=== PATIENT | female | born 1990 | race Caucasian/White ===

== ENCOUNTER 2021-01-25 07:42 | Inpatient (IN) ==
[2021-01-25] MEDS ORDERED: OXYTOCIN 30 UNITS/500 ML BAG IV PRN ×2 (07:45)
--- NOTE | 2021-01-25 08:12 | History & Physical Report ---
Date of Service January 25, 2021 Assessment & Plan (1) Gestational diabetes mellitus (GDM) affecting , antepartum: (2) with 41 completed weeks gestation: Plan: plan pitocin induction, screen covid, gbs negative. arom as needed, epidural on demand. Fetus category one. Check sugars with goal of 70-120. Anticipate . Admission and Anticipated Discharge Date Admission Date: January 25, 2021 History of Present Illness Chief Complaint: induction Primary Care Provider: Casey De Dios Fabián Patient is a 30yowf with iup at41 0/7 weeks who presents for induction. Had balloon placed last night and fell out at 1am. Had some spotting and contractions for about 2 hours after that. Notes no lof, +fm. complicated by diet controlled gdm. Last AC 60% on 12/27. Complex cyst on left ovary noted at [facility]. Stable at 24 and 28 weeks and plan f/u pp. OB Labs: Blood Type O Negative 06/13/20 Antibody Screen NEGATIVE 10/30/20 Hemoglobin 10.5 g/dL (12.0-16.0) L 10/30/20 Hematocrit 31.9 % (37-47) L 10/30/20 Mean Corpuscular Volume 80.8 fL (80-100) 06/13/20 Platelet Count 276 K/uL (130-400) 06/13/20 Rubella IgG Antibody Immune (Immune) 06/13/20 Rapid Plasma Reagin Nonreactive (Nonreactive) 06/13/20 Hepatitis B Surface Antigen Neg (Neg) 06/13/20 HIV (1&2) Ab and P24 Ag, 4th Gener Neg (Neg) 06/13/20 Glucose 1 Hour 50 gm Load 152 mg/dl (70-130) H 08/09/20 OB Optional Labs: Chlamydia trachomatis RNA NOT DETECTED (NOT DETECTED) 06/13/20 Neisseria gonorrhoeae RNA NOT DETECTED (NOT DETECTED) 06/13/20 Labs Reviewed: declines cf/sma low risk panorama Allergies Allergy/AdvReac Type Severity Reaction Status Date / Time amoxicillin [From Augmentin] Allergy Verified 01/24/21 11:16 clarithromycin [From Biaxin] Allergy Verified 01/24/21 11:16 clavulanic acid Allergy Verified 01/24/21 11:16 [From Augmentin] sulfamethoxazole Allergy Verified 01/24/21 11:16 [From Bactrim] trimethoprim [From Bactrim] Allergy Verified 01/24/21 11:16 Home Medications Medication Instructions Recorded Confirmed Type cetirizine 10 mg tablet 10 mg PO DAILY 04/23/19 01/24/21 History prenat.vits,chyu,kex-qppf-lsftd 1 tab PO DAILY 05/08/20 01/24/21 History acetone (urine) test (Ketone Urine #50 ea 08/31/20 01/24/21 Rx Test) blood sugar diagnostic (OneTouch #150 ea 08/31/20 01/24/21 Rx Verio test strips) blood-glucose meter (OneTouch #1 ea 08/31/20 01/24/21 Rx Verio Flex meter) lancets 33 gauge (OneTouch Delica #150 ea 08/31/20 01/24/21 Rx Plus Lancet) ferrous sulfate 1 tab PO DAILY 11/27/20 01/24/21 History Patient History Surgical History H/O oral surgery Family History Grandmother (Paternal) Breast cancer Father Dyslipidemia Grandfather (Maternal) Bladder cancer Denies family history of Ovarian cancer Colorectal cancer Social History Smoking Status: Never smoker Second Hand Exposure: No; Hx Alcohol Use: No Hx Substance Use: No marital status: marital status details: Fredrick (30) [phone] Current Living Situation: Spouse Current Living Situation Comment: lives with spouse, 1 dog. current occupational status: employed current occupation: Meterologist. 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
[2021-01-25] MEDS: LACTATED RINGER'S 1,000 ML IV PRN ×4 (08:53→22:27)
[2021-01-25 09:18] LABS: Hematocrit (blood only) 32.1 % (37-47); Hemoglobin 10.6 g/dL (12.0-16.0); Mean Corpuscular Hemoglobin 26.9 pg (25-34); Mean Corpuscular Volume 81.5 fL (80-100); Mean Platelet Volume 11.9 fL (7.4-10.4); Platelet Count 214 K/uL (130-400); RDW Coefficient of Variation 14.7 % (11.5-14.5); RDW Standard Deviation 43.9 fL (36.4-46.3); Red Blood Count 3.94 M/uL (4.2-5.4); White Blood Count 14.53 K/uL (4.8-10.8)
--- NOTE | 2021-01-25 13:29 | Labor Progress Brief Note ---
Date of Service January 25, 2021 Subjective noting contractions but not uncomfortable Assessment & Plan (1) with 41 completed weeks gestation: Plan: sugars are good. Now ready for arom. Can do now or get epidural and then arom. Considering. fetus category one. (2) Gestational diabetes mellitus (GDM) affecting , antepartum: Admission and Anticipated Discharge Date Admission Date: January 25, 2021 Physical Exam Physical Exam: cx--4/50/-2 toco--q2-4min, pit at 15 efm--130s wtih mod variablity, accels to 150s, no decels Results & Data ([place]) Vital Signs (Past 12 Hours) Vital Signs Temp Pulse Resp BP 01/25/21 12:31 89 20 118/75 01/25/21 11:34 89 127/75 01/25/21 10:51 37.1 C 79 20 117/67 01/25/21 09:41 88 110/72 01/25/21 08:54 96 H 120/74 01/25/21 07:57 37.6 C H 105 H 20 117/71 Coding Level of Care Code None Diagnoses with 41 completed weeks gestation Z3A.41 Gestational diabetes mellitus (GDM) affecting , antepartum O24.419
[2021-01-25] MEDS ORDERED: SODIUM CHLORIDE 0.9% INJ 10 ML VIAL ONE (13:37)
[2021-01-25] MEDS ORDERED: ePHEDrine sulfate 50 MG/ML AMP ONE (13:37)
[2021-01-25] MEDS ORDERED: fentaNYL citrate 100 MCG/2 ML VIAL ONE (13:38)
[2021-01-25] MEDS ORDERED: fentaNYL 2MCG/ML ROPIVACAINE 1.25MG/ML 100 ML BAG EPI ONE (13:38)
[2021-01-25] MEDS ORDERED: BUPIVACAINE 0.25% 30 ML VIAL ONE ×2 (13:38→21:23)
[2021-01-25] MEDS ORDERED: ePHEDrine sulfate 50 MG/ML AMP IV PRN (14:15)
[2021-01-25] MEDS ORDERED: NALOXONE HCL 1 MG in SODIUM CHLORIDE 0.9% 1000ML 1,000 ML IV PRN (14:15)
[2021-01-25] MEDS ORDERED: NALOXONE HCL 0.4 MG/1 ML VIAL/CARP IV PRN (14:15)
[2021-01-25] MEDS ORDERED: NALBUPHINE HCL INJ 10 MG/ML AMP IV PRN (14:15)
[2021-01-25] MEDS ORDERED: ONDANSETRON INJ 2 MG/ML 2 ML VIAL IV PRN (14:15)
[2021-01-25] MEDS ORDERED: diphenhydrAMINE 50 MG/ML VIAL IV PRN (14:15)
--- NOTE | 2021-01-25 14:15 | Anesthesiology Consultation ---
Date of Service January 25, 2021 Assessment & Plan ASA ASA3 Proposed Anesthesia Anesthesia Type: Labor Epidural Risk / Benefits Reviewed With: PT / POA / Parent / Guardian, Accepts Plan and Informed Consent Obtained History Height/Weight Height: 5 ft 9 in Weight: 112.945 kg Allergies Allergy/AdvReac Type Severity Reaction Status Date / Time amoxicillin [From Augmentin] Allergy Unknown Unknown Verified 01/25/21 10:29 clarithromycin [From Biaxin] Allergy Unknown Unknown Verified 01/25/21 10:29 clavulanic acid Allergy Unknown Unknown Verified 01/25/21 10:29 [From Augmentin] sulfamethoxazole Allergy Unknown Unknown Verified 01/25/21 10:29 [From Bactrim] trimethoprim [From Bactrim] Allergy Unknown Unknown Verified 01/25/21 10:29 Medications Home Medications Medication Instructions Recorded Confirmed Last Taken cetirizine 10 mg tablet 10 mg PO DAILY 04/23/19 01/25/21 01/25/21 06:00 prenat.vits,chuy,pun-djqv-okvam 1 tab PO DAILY 05/08/20 01/25/21 01/25/21 06:00 acetone (urine) test (Ketone Urine #50 ea 08/31/20 01/24/21 Unknown Test) blood sugar diagnostic (OneTouch #150 ea 08/31/20 01/24/21 Unknown Verio test strips) blood-glucose meter (OneTouch #1 ea 08/31/20 01/24/21 Unknown Verio Flex meter) lancets 33 gauge (OneTouch Delica #150 ea 08/31/20 01/24/21 Unknown Plus Lancet) ferrous sulfate 1 tab PO DAILY 11/27/20 01/25/21 01/24/21 06:00 Active Medications Generic Name Dose Route Start Last Admin Trade Name Freq PRN Reason Stop Dose Admin Oxytocin 30 units in 500 mls @ 15 mls/hr 01/25/21 07:45 01/25/21 13:00 Pitocin IV 01/27/21 07:44 0.9 units/hr .Q24H PRN 15 mls/hr Labor Induction/Augmentation Titration Protocol 0.9 UNITS/HR Lactated Ringer's 1,000 mls @ 125 mls/hr 01/25/21 07:45 01/25/21 14:35 Lr IV 01/27/21 07:44 125 mls/hr .Q8H PRN Infusion L&D Protocol Protocol Past Family History Family History Grandmother (Paternal) Breast cancer Father Dyslipidemia Grandfather (Maternal) Bladder cancer Denies family history of Ovarian cancer Colorectal cancer Past Surgical History Surgical History H/O oral surgery Social History Smoking Status: Never smoker Hx Alcohol Use: No Hx Substance Use: No Physical Exam Vital Signs Last Vital Signs Temp 38.2 C H 01/25/21 15:34 Pulse 90 01/25/21 15:40 Resp 20 01/25/21 15:34 BP 106/65 01/25/21 15:39 Pulse Ox 98 01/25/21 15:40 Testing Laboratory Results 01/25/21 08:39 Blood Type O Negative 01/25/21 08:39 Antibody Screen NEGATIVE 01/25/21 08:39 01/25/21 01/25/21 01/25/21 13:32 11:33 09:39 POC Glucose 86 94 89 01/25/21 08:27 POC Glucose 93
--- NOTE | 2021-01-25 15:37 | Labor Progress Brief Note ---
Date of Service January 25, 2021 Subjective comfortable with epidural Assessment & Plan (1) with 41 completed weeks gestation: Plan: continue current management. fetus overall category one. anticipate . Admission and Anticipated Discharge Date Admission Date: January 25, 2021 Physical Exam Physical Exam: cx--4-5/75/-2 arom--green meconium toco--q2-3min, pit at 15 efm--140s with mod variability for the most part, some small periods of min variabiltiy, +scalp stim, accels to 160s Results & Data ([facility]) Vital Signs (Past 12 Hours) Vital Signs Temp Pulse Resp BP Pulse Ox 01/25/21 15:30 105 H 97 01/25/21 15:25 96 H 98 01/25/21 15:23 96 H 104/64 01/25/21 15:20 81 100 01/25/21 15:19 95 H 107/66 01/25/21 15:15 95 H 100 01/25/21 15:13 109/58 L 01/25/21 15:10 99 H 97 01/25/21 15:09 75 106/52 L 01/25/21 15:05 92 H 100 01/25/21 15:04 90 94/66 L 01/25/21 15:00 99 H 100 01/25/21 14:58 98 H 104/56 L 01/25/21 14:55 82 100 01/25/21 14:54 89 100/56 L 01/25/21 14:50 71 100 01/25/21 14:48 81 104/62 01/25/21 14:46 85 100/62 01/25/21 14:45 88 20 100 01/25/21 14:44 75 100/59 L 01/25/21 14:42 71 93/55 L 01/25/21 14:40 79 101/55 L 100 01/25/21 14:38 83 20 106/57 L 01/25/21 14:36 101 H 107/58 L 01/25/21 14:35 98 H 100 01/25/21 14:34 112 H 117/57 L 01/25/21 14:32 106 H 120/63 01/25/21 14:31 20 01/25/21 14:30 107 H 149/76 H 99 01/25/21 14:28 99 H 134/81 01/25/21 14:25 96 H 99 01/25/21 14:20 103 H 100 01/25/21 14:15 37.2 C 93 H 20 127/71 99 01/25/21 13:33 88 126/64 01/25/21 12:31 89 20 118/75 01/25/21 11:34 89 127/75 01/25/21 10:51 37.1 C 79 20 117/67 01/25/21 09:41 88 110/72 01/25/21 08:54 96 H 120/74 01/25/21 07:57 37.6 C H 105 H 20 117/71 Coding Level of Care Code None Diagnoses with 41 completed weeks gestation Z3A.41
--- NOTE | 2021-01-25 15:53 | Communication Note ---
Date of Service: January 25, 2021 Just notified of temp to 38.2. Tmax had been 37.2. Very recent to epidural admin ? related to that. fetus not tachy nor mother. Will repeat in one hour, and if still elevated, plan to start abio. allergic to amoxicillin (rash) so per Up to Date will go with gent and clinda. and also give tylenol.
[2021-01-25] MEDS ORDERED: ACETAMINOPHEN 500 MG TAB PO PRN (17:35)
[2021-01-25] MEDS: CLINDAMYCIN 900 MG in DEXTROSE 5% 50 ML IV SCH (18:21)
[2021-01-25] MEDS: GENTAMICIN SULFATE 60 MG in DEXTROSE 5% 100 ML IV SCH (19:10)
--- NOTE | 2021-01-25 20:31 | Labor Progress Brief Note ---
Date of Service January 25, 2021 Subjective comfortable with epidural Assessment & Plan (1) with 41 completed weeks gestation: Plan: continue current management. fetus overall category one. anticipate . iupc now placed to evaluate contractions. Admission and Anticipated Discharge Date Admission Date: January 25, 2021 Physical Exam Physical Exam: cx--5/80/-2 toco--q2-3min, pit at 19 efm--140s with mod variability for the most part, some small periods of min variabiltiy, +scalp stim, accels to 160 iupc placed Constitutional: WD/WN, vitals as above Psychiatric: A+Ox3, euthymic affect Results & Data ([facility]) Vital Signs (Past 12 Hours) Vital Signs Temp Pulse Resp BP Pulse Ox 01/25/21 20:25 91 H 126/73 99 01/25/21 20:20 88 96 01/25/21 20:15 87 95 01/25/21 20:10 90 133/63 97 01/25/21 20:05 87 98 01/25/21 20:00 92 H 20 97 01/25/21 19:55 83 97 01/25/21 19:54 83 109/64 01/25/21 19:50 89 97 01/25/21 19:45 97 H 97 01/25/21 19:40 102 H 97 01/25/21 19:39 106 H 117/67 01/25/21 19:35 92 H 97 01/25/21 19:30 90 18 96 01/25/21 19:25 85 97 01/25/21 19:24 87 115/70 01/25/21 19:20 94 H 97 01/25/21 19:15 99 H 97 01/25/21 19:10 84 98 01/25/21 19:09 83 123/72 01/25/21 19:05 37.1 C 85 18 99 01/25/21 19:00 92 H 20 97 01/25/21 18:55 85 114/60 96 01/25/21 18:50 79 95 01/25/21 18:45 79 97 01/25/21 18:40 81 97 01/25/21 18:39 75 116/61 01/25/21 18:35 78 96 01/25/21 18:30 79 97 01/25/21 18:29 18 01/25/21 18:25 77 116/60 97 01/25/21 18:20 82 98 01/25/21 18:15 78 98 01/25/21 18:10 88 98 01/25/21 18:09 81 113/60 01/25/21 18:05 81 97 01/25/21 18:00 82 20 97 01/25/21 17:55 86 97 01/25/21 17:54 86 112/62 01/25/21 17:50 85 98 01/25/21 17:45 86 97 01/25/21 17:40 83 97 01/25/21 17:39 86 109/63 01/25/21 17:35 79 96 01/25/21 17:30 38.1 C H 86 20 98 01/25/21 17:25 92 H 111/65 97 01/25/21 17:20 87 97 01/25/21 17:15 91 H 98 01/25/21 17:10 99 H 97 01/25/21 17:09 94 H 99/59 L 01/25/21 17:05 97 H 97 01/25/21 17:00 85 20 98 01/25/21 16:55 81 97 01/25/21 16:54 87 101/61 01/25/21 16:50 84 97 01/25/21 16:45 90 97 01/25/21 16:40 81 111/64 97 01/25/21 16:35 97 H 98 01/25/21 16:30 37.7 C H 103 H 20 98 01/25/21 16:25 102 H 97 01/25/21 16:24 103 H 117/62 01/25/21 16:20 85 97 01/25/21 16:15 79 97 01/25/21 16:10 88 96 01/25/21 16:09 81 112/62 01/25/21 16:05 77 97 01/25/21 16:00 85 97 01/25/21 15:59 20 01/25/21 15:55 80 133/68 97 01/25/21 15:50 77 98 01/25/21 15:45 83 98 01/25/21 15:40 90 98 01/25/21 15:39 97 H 106/65 01/25/21 15:35 64 98 01/25/21 15:34 38.2 C H 20 01/25/21 15:30 105 H 97 01/25/21 15:29 18 01/25/21 15:25 96 H 98 01/25/21 15:23 96 H 104/64 01/25/21 15:20 81 100 01/25/21 15:19 95 H 107/66 01/25/21 15:15 95 H 100 01/25/21 15:13 109/58 L 01/25/21 15:10 99 H 97 01/25/21 15:09 75 106/52 L 01/25/21 15:05 92 H 100 01/25/21 15:04 90 94/66 L 01/25/21 15:00 99 H 20 100 01/25/21 14:58 98 H 104/56 L 01/25/21 14:55 82 100 01/25/21 14:54 89 100/56 L 01/25/21 14:50 71 100 01/25/21 14:48 81 104/62 01/25/21 14:46 85 100/62 01/25/21 14:45 88 20 100 01/25/21 14:44 75 100/59 L 01/25/21 14:42 71 93/55 L 01/25/21 14:40 79 101/55 L 100 01/25/21 14:38 83 20 106/57 L 01/25/21 14:36 101 H 107/58 L 01/25/21 14:35 98 H 100 01/25/21 14:34 112 H 117/57 L 01/25/21 14:32 106 H 120/63 01/25/21 14:31 20 01/25/21 14:30 107 H 149/76 H 99 01/25/21 14:28 99 H 134/81 01/25/21 14:25 96 H 99 01/25/21 14:20 103 H 100 01/25/21 14:15 37.2 C 93 H 20 127/71 99 01/25/21 13:33 88 126/64 01/25/21 12:31 89 20 118/75 01/25/21 11:34 89 127/75 01/25/21 10:51 37.1 C 79 20 117/67 01/25/21 09:41 88 110/72 01/25/21 08:54 96 H 120/74 Coding Level of Care Code None Diagnoses with 41 completed weeks gestation Z3A.41
[2021-01-25] MEDS: fentaNYL 2MCG/ML ROPIVACAINE 1.25MG/ML 100 ML BAG EPI PRN (21:09)
[2021-01-25] MEDS ORDERED: NURSING L&D Epidural Breakthrough Pain Update ONE (21:27)
--- NOTE | 2021-01-25 22:11 | Communication Note ---
Date of Service: January 25, 2021 asked to evaluate epidural. pt c/o 8/10 crampy lower vaginal area pain. both sides equally painful. Upon examination. pt does not have use of hip flexors on right, but does on left. I pulled catheter back to 11cm. Bolused 5cc of 0.25% bupivicaine. pt b/p decreased and ephedrine/fluid bolus given. hr remained stable. pt reports improved comfort and hip flexors on left are showing weakness.
--- NOTE | 2021-01-26 00:14 | Labor Progress Brief Note ---
Date of Service January 26, 2021 Subjective comfortable with epidural--had successful redose Assessment & Plan (1) with 41 completed weeks gestation: Plan: continue current management. fetus overall category one. anticipate . iupc placed to evaluate contractions--not adequate and dysfunctional. However , she is making slow but positive change so will continue. Has remained afebrile with antibiotics, no or maternal tachycardia.. Admission and Anticipated Discharge Date Admission Date: January 25, 2021 Physical Exam Physical Exam: cx--6/100/-2 toco--q2-3min, pit at 27, contractions not adequate and uterus in dysfunctional pattern efm--150s with mod variability for the most part, some small periods of min variabiltiy, +scalp stim, accels to 160 Constitutional: WD/WN, vitals as above Psychiatric: A+Ox3, euthymic affect Results & Data ([facility]) Vital Signs (Past 12 Hours) Vital Signs Temp Pulse Resp BP Pulse Ox 01/26/21 00:07 105 H 124/69 01/26/21 00:05 101 H 100 01/26/21 00:00 91 H 97 01/25/21 23:55 103 H 96 01/25/21 23:52 106 H 127/67 01/25/21 23:50 105 H 98 01/25/21 23:45 95 H 97 01/25/21 23:40 89 94 01/25/21 23:39 88 94 01/25/21 23:36 82 115/58 L 01/25/21 23:35 91 H 95 01/25/21 23:33 90 94 01/25/21 23:30 85 16 95 01/25/21 23:25 81 95 01/25/21 23:21 82 110/57 L 01/25/21 23:20 81 96 01/25/21 23:16 84 94 01/25/21 23:15 82 95 01/25/21 23:10 80 96 01/25/21 23:07 82 108/61 01/25/21 23:05 83 94 01/25/21 23:00 81 18 94 01/25/21 22:55 79 95 01/25/21 22:54 83 94 01/25/21 22:51 36.9 C 88 112/58 L 01/25/21 22:50 83 95 01/25/21 22:46 79 106/57 L 01/25/21 22:45 83 97 01/25/21 22:40 81 109/59 L 97 01/25/21 22:36 77 106/53 L 01/25/21 22:35 78 97 01/25/21 22:31 75 107/53 L 01/25/21 22:30 77 16 98 01/25/21 22:25 82 110/56 L 99 01/25/21 22:20 95 H 110/55 L 100 01/25/21 22:15 82 99/56 L 100 01/25/21 22:13 85 94/53 L 01/25/21 22:10 92 H 92/52 L 99 01/25/21 22:07 75 84/52 L 01/25/21 22:05 82 99 01/25/21 22:01 95 H 107/66 01/25/21 22:00 94 H 18 97 01/25/21 21:55 102 H 129/69 97 01/25/21 21:50 91 H 100 01/25/21 21:45 84 96 01/25/21 21:40 82 99 01/25/21 21:39 78 124/64 01/25/21 21:35 77 96 01/25/21 21:30 84 20 98 01/25/21 21:25 87 97 01/25/21 21:24 79 122/65 01/25/21 21:20 84 98 01/25/21 21:15 92 H 100 01/25/21 21:10 88 100 01/25/21 21:09 83 120/58 L 01/25/21 21:05 81 100 01/25/21 21:00 37.2 C 80 20 99 01/25/21 20:55 85 122/56 L 100 01/25/21 20:50 81 99 01/25/21 20:45 82 99 01/25/21 20:40 78 109/55 L 99 01/25/21 20:35 100 H 97 01/25/21 20:30 85 99 01/25/21 20:25 91 H 20 126/73 99 01/25/21 20:20 88 96 01/25/21 20:15 87 95 01/25/21 20:10 90 133/63 97 01/25/21 20:05 87 98 01/25/21 20:00 92 H 20 97 01/25/21 19:55 83 97 01/25/21 19:54 83 109/64 01/25/21 19:50 89 97 01/25/21 19:45 97 H 97 01/25/21 19:40 102 H 97 01/25/21 19:39 106 H 117/67 01/25/21 19:35 92 H 97 01/25/21 19:30 90 18 96 01/25/21 19:25 85 97 01/25/21 19:24 87 115/70 01/25/21 19:20 94 H 97 01/25/21 19:15 99 H 97 01/25/21 19:10 84 98 01/25/21 19:09 83 123/72 01/25/21 19:05 37.1 C 85 18 99 01/25/21 19:00 92 H 20 97 01/25/21 18:55 85 114/60 96 01/25/21 18:50 79 95 01/25/21 18:45 79 97 01/25/21 18:40 81 97 01/25/21 18:39 75 116/61 01/25/21 18:35 78 96 01/25/21 18:30 79 97 01/25/21 18:29 18 01/25/21 18:25 77 116/60 97 01/25/21 18:20 82 98 01/25/21 18:15 78 98 01/25/21 18:10 88 98 01/25/21 18:09 81 113/60 01/25/21 18:05 81 97 01/25/21 18:00 82 20 97 01/25/21 17:55 86 97 01/25/21 17:54 86 112/62 01/25/21 17:50 85 98 01/25/21 17:45 86 97 01/25/21 17:40 83 97 01/25/21 17:39 86 109/63 01/25/21 17:35 79 96 01/25/21 17:30 38.1 C H 86 20 98 01/25/21 17:25 92 H 111/65 97 01/25/21 17:20 87 97 01/25/21 17:15 91 H 98 01/25/21 17:10 99 H 97 01/25/21 17:09 94 H 99/59 L 01/25/21 17:05 97 H 97 01/25/21 17:00 85 20 98 01/25/21 16:55 81 97 01/25/21 16:54 87 101/61 01/25/21 16:50 84 97 01/25/21 16:45 90 97 01/25/21 16:40 81 111/64 97 01/25/21 16:35 97 H 98 01/25/21 16:30 37.7 C H 103 H 20 98 01/25/21 16:25 102 H 97 01/25/21 16:24 103 H 117/62 01/25/21 16:20 85 97 01/25/21 16:15 79 97 01/25/21 16:10 88 96 01/25/21 16:09 81 112/62 01/25/21 16:05 77 97 01/25/21 16:00 85 97 01/25/21 15:59 20 01/25/21 15:55 80 133/68 97 01/25/21 15:50 77 98 01/25/21 15:45 83 98 01/25/21 15:40 90 98 01/25/21 15:39 97 H 106/65 01/25/21 15:35 64 98 01/25/21 15:34 38.2 C H 20 01/25/21 15:30 105 H 97 01/25/21 15:29 18 01/25/21 15:25 96 H 98 01/25/21 15:23 96 H 104/64 01/25/21 15:20 81 100 01/25/21 15:19 95 H 107/66 01/25/21 15:15 95 H 100 01/25/21 15:13 109/58 L 01/25/21 15:10 99 H 97 01/25/21 15:09 75 106/52 L 01/25/21 15:05 92 H 100 01/25/21 15:04 90 94/66 L 01/25/21 15:00 99 H 20 100 01/25/21 14:58 98 H 104/56 L 01/25/21 14:55 82 100 01/25/21 14:54 89 100/56 L 01/25/21 14:50 71 100 01/25/21 14:48 81 104/62 01/25/21 14:46 85 100/62 01/25/21 14:45 88 20 100 01/25/21 14:44 75 100/59 L 01/25/21 14:42 71 93/55 L 01/25/21 14:40 79 101/55 L 100 01/25/21 14:38 83 20 106/57 L 01/25/21 14:36 101 H 107/58 L 01/25/21 14:35 98 H 100 01/25/21 14:34 112 H 117/57 L 01/25/21 14:32 106 H 120/63 01/25/21 14:31 20 01/25/21 14:30 107 H 149/76 H 99 01/25/21 14:28 99 H 134/81 01/25/21 14:25 96 H 99 01/25/21 14:20 103 H 100 01/25/21 14:15 37.2 C 93 H 20 127/71 99 01/25/21 13:33 88 126/64 01/25/21 12:31 89 20 118/75 Coding Level of Care Code None Diagnoses with 41 completed weeks gestation Z3A.41
[2021-01-26] MEDS: CLINDAMYCIN 900 MG in DEXTROSE 5% 50 ML IV SCH (02:01)
[2021-01-26] MEDS: GENTAMICIN SULFATE 60 MG in DEXTROSE 5% 100 ML IV SCH (02:48)
[2021-01-26] MEDS: fentaNYL 2MCG/ML ROPIVACAINE 1.25MG/ML 100 ML BAG EPI PRN (02:58)
--- NOTE | 2021-01-26 03:10 | Labor Progress Brief Note ---
Date of Service January 26, 2021 Subjective comfortable but feels shaky Assessment & Plan (1) with 41 completed weeks gestation: Plan: plan to labor down for one hour and then push. fetus overall reassuring. I believe there is room and will get vaginal delivery. Admission and Anticipated Discharge Date Admission Date: January 25, 2021 Physical Exam Physical Exam: cx--c/c/+2 toco--q2 -3min, pit at 29 efm--140s wtih min to mod variability, small accels , no decels Results & Data ([facility]) Vital Signs (Past 12 Hours) Vital Signs Temp Pulse Resp BP Pulse Ox 01/26/21 03:05 106 H 100 01/26/21 03:00 37.4 C 91 H 96 01/26/21 02:55 88 99 01/26/21 02:52 90 122/62 01/26/21 02:50 92 H 99 01/26/21 02:45 87 96 01/26/21 02:40 87 98 01/26/21 02:36 89 107/60 01/26/21 02:35 88 99 01/26/21 02:30 85 18 98 01/26/21 02:25 84 98 01/26/21 02:21 87 104/58 L 01/26/21 02:20 83 96 01/26/21 02:15 84 99 01/26/21 02:10 97 H 98 01/26/21 02:06 88 117/58 L 01/26/21 02:05 95 H 100 01/26/21 02:00 88 20 99 01/26/21 01:55 82 96 01/26/21 01:52 87 107/54 L 01/26/21 01:50 83 97 01/26/21 01:45 103 H 96 01/26/21 01:40 100 H 97 01/26/21 01:37 92 H 111/60 01/26/21 01:35 104 H 100 01/26/21 01:30 81 18 96 01/26/21 01:27 86 94 01/26/21 01:25 86 95 01/26/21 01:21 114 H 104/64 01/26/21 01:20 110 H 99 01/26/21 01:15 94 H 95 01/26/21 01:13 102 H 94 01/26/21 01:10 92 H 95 01/26/21 01:07 94 H 94 01/26/21 01:06 92 H 114/67 01/26/21 01:05 93 H 95 01/26/21 01:01 96 H 94 01/26/21 01:00 96 H 16 94 01/26/21 00:58 36.9 C 01/26/21 00:56 96 H 94 01/26/21 00:55 95 H 94 01/26/21 00:51 96 H 116/66 01/26/21 00:50 95 H 95 01/26/21 00:45 95 H 95 01/26/21 00:40 100 H 96 01/26/21 00:36 91 H 115/62 01/26/21 00:35 93 H 95 01/26/21 00:30 95 H 16 96 01/26/21 00:25 93 H 96 01/26/21 00:21 90 109/60 01/26/21 00:20 96 H 97 01/26/21 00:15 92 H 97 01/26/21 00:10 95 H 98 01/26/21 00:07 105 H 124/69 01/26/21 00:05 101 H 100 01/26/21 00:00 91 H 16 97 01/25/21 23:55 103 H 96 01/25/21 23:52 106 H 127/67 01/25/21 23:50 105 H 98 01/25/21 23:45 95 H 97 01/25/21 23:40 89 94 01/25/21 23:39 88 94 01/25/21 23:36 82 115/58 L 01/25/21 23:35 91 H 95 01/25/21 23:33 90 94 01/25/21 23:30 85 16 95 01/25/21 23:25 81 95 01/25/21 23:21 82 110/57 L 01/25/21 23:20 81 96 01/25/21 23:16 84 94 01/25/21 23:15 82 95 01/25/21 23:10 80 96 01/25/21 23:07 82 108/61 01/25/21 23:05 83 94 01/25/21 23:00 81 18 94 01/25/21 22:55 79 95 01/25/21 22:54 83 94 01/25/21 22:51 36.9 C 88 112/58 L 01/25/21 22:50 83 95 01/25/21 22:46 79 106/57 L 01/25/21 22:45 83 97 01/25/21 22:40 81 109/59 L 97 01/25/21 22:36 77 106/53 L 01/25/21 22:35 78 97 01/25/21 22:31 75 107/53 L 01/25/21 22:30 77 16 98 01/25/21 22:25 82 110/56 L 99 01/25/21 22:20 95 H 110/55 L 100 01/25/21 22:15 82 99/56 L 100 01/25/21 22:13 85 94/53 L 01/25/21 22:10 92 H 92/52 L 99 01/25/21 22:07 75 84/52 L 01/25/21 22:05 82 99 01/25/21 22:01 95 H 107/66 01/25/21 22:00 94 H 18 97 01/25/21 21:55 102 H 129/69 97 01/25/21 21:50 91 H 100 01/25/21 21:45 84 96 01/25/21 21:40 82 99 01/25/21 21:39 78 124/64 01/25/21 21:35 77 96 01/25/21 21:30 84 20 98 01/25/21 21:25 87 97 01/25/21 21:24 79 122/65 01/25/21 21:20 84 98 01/25/21 21:15 92 H 100 01/25/21 21:10 88 100 01/25/21 21:09 83 120/58 L 01/25/21 21:05 81 100 01/25/21 21:00 37.2 C 80 20 99 01/25/21 20:55 85 122/56 L 100 01/25/21 20:50 81 99 01/25/21 20:45 82 99 01/25/21 20:40 78 109/55 L 99 01/25/21 20:35 100 H 97 01/25/21 20:30 85 99 01/25/21 20:25 91 H 20 126/73 99 01/25/21 20:20 88 96 01/25/21 20:15 87 95 01/25/21 20:10 90 133/63 97 01/25/21 20:05 87 98 01/25/21 20:00 92 H 20 97 01/25/21 19:55 83 97 01/25/21 19:54 83 109/64 01/25/21 19:50 89 97 01/25/21 19:45 97 H 97 01/25/21 19:40 102 H 97 01/25/21 19:39 106 H 117/67 01/25/21 19:35 92 H 97 01/25/21 19:30 90 18 96 01/25/21 19:25 85 97 01/25/21 19:24 87 115/70 01/25/21 19:20 94 H 97 01/25/21 19:15 99 H 97 01/25/21 19:10 84 98 01/25/21 19:09 83 123/72 01/25/21 19:05 37.1 C 85 18 99 01/25/21 19:00 92 H 20 97 01/25/21 18:55 85 114/60 96 01/25/21 18:50 79 95 01/25/21 18:45 79 97 01/25/21 18:40 81 97 01/25/21 18:39 75 116/61 01/25/21 18:35 78 96 01/25/21 18:30 79 97 01/25/21 18:29 18 01/25/21 18:25 77 116/60 97 01/25/21 18:20 82 98 01/25/21 18:15 78 98 01/25/21 18:10 88 98 01/25/21 18:09 81 113/60 01/25/21 18:05 81 97 01/25/21 18:00 82 20 97 01/25/21 17:55 86 97 01/25/21 17:54 86 112/62 01/25/21 17:50 85 98 01/25/21 17:45 86 97 01/25/21 17:40 83 97 01/25/21 17:39 86 109/63 01/25/21 17:35 79 96 01/25/21 17:30 38.1 C H 86 20 98 01/25/21 17:25 92 H 111/65 97 01/25/21 17:20 87 97 01/25/21 17:15 91 H 98 01/25/21 17:10 99 H 97 01/25/21 17:09 94 H 99/59 L 01/25/21 17:05 97 H 97 01/25/21 17:00 85 20 98 01/25/21 16:55 81 97 01/25/21 16:54 87 101/61 01/25/21 16:50 84 97 01/25/21 16:45 90 97 01/25/21 16:40 81 111/64 97 01/25/21 16:35 97 H 98 01/25/21 16:30 37.7 C H 103 H 20 98 01/25/21 16:25 102 H 97 01/25/21 16:24 103 H 117/62 01/25/21 16:20 85 97 01/25/21 16:15 79 97 01/25/21 16:10 88 96 01/25/21 16:09 81 112/62 01/25/21 16:05 77 97 01/25/21 16:00 85 97 01/25/21 15:59 20 01/25/21 15:55 80 133/68 97 01/25/21 15:50 77 98 01/25/21 15:45 83 98 01/25/21 15:40 90 98 01/25/21 15:39 97 H 106/65 01/25/21 15:35 64 98 01/25/21 15:34 38.2 C H 20 01/25/21 15:30 105 H 97 01/25/21 15:29 18 01/25/21 15:25 96 H 98 01/25/21 15:23 96 H 104/64 01/25/21 15:20 81 100 01/25/21 15:19 95 H 107/66 01/25/21 15:15 95 H 100 01/25/21 15:13 109/58 L 01/25/21 15:10 99 H 97 01/25/21 15:09 75 106/52 L Coding Level of Care Code None Diagnoses with 41 completed weeks gestation Z3A.41
[2021-01-26] MEDS ORDERED: METHYLERGONOVINE MALEATE 0.2 MG/ML AMP IM ONE (05:41)
[2021-01-26] MEDS ORDERED: SUPERCREAM 0.870% 15 GM JAR EXT PRN (05:41)
[2021-01-26] MEDS ORDERED: oxyCODONE/ACETAMINOPHEN 5mg/325mg TAB PO PRN (05:41)
[2021-01-26] MEDS ORDERED: OXYTOCIN 30 UNITS/500 ML BAG IV PRN (05:41)
[2021-01-26] MEDS ORDERED: ACETAMINOPHEN 325 MG TAB PO PRN (05:41)
[2021-01-26] MEDS ORDERED: miSOPROStoL 200 MCG TAB PR ONE (05:41)
[2021-01-26] MEDS ORDERED: HYDROCORTISONE ACETATE 25 MG SUPP PR PRN (05:41)
[2021-01-26] MEDS ORDERED: DIPHTHERIA/TETANUS/PERTUSSIS 0.5 ML SYR/VIAL IM ONE (05:41)
[2021-01-26] MEDS ORDERED: BENZOCAINE 20% AER SPR 82.5 GM CAN EXT PRN (05:41)
--- NOTE | 2021-01-26 05:48 | Delivery Summary ---
Vaginal Delivery Summary Date of Service January 26, 2021 Vaginal Delivery Summary and 2nd Degree LAC Pre-operative Diagnosis: at 40 0/7 temperature in labor Post-operative Diagnosis: same meconium fluid Procedure: pompa for cervical ripening pitocin induction epidural arom iupc second degree laceration and repair EBL: 450cc Anesthesia: epidural Procedure: Patient admitted for induction of labor for postdates. Had pompa placed night before and fell out at 1am. Started with pitocin and then underwent epidural and arom for green meconium. The patient progressed slowly and required iupc. She had Tmax of 38.2 and repeat was 38.0 so gent and clinda started as allergic to pcn. She had no further temps in labor. No maternal or tachycardia til the tail end of pushing. She was discovered to be c/c/+2 and labored down for 1.5 hours.The patient pushed for a little over 30 min to deliver a viable male infant in herve position. The nose and mouth were bulb suctioned on the perineum and the rest of the infant was then delivered without difficulty. The baby was vigorous. The nose and mouth were again bulb suctioned and the infant was placed in the maternal abdomen for drying and attention. Cord was clamped and cut at one minute of life. Cord blood obtained. Attempted to obtain cord segment for cord blood gases but unable to keep segment clamped. Placenta delivered by gentle removal from the cervix and lower uterine segment, intact with a three vessel cord. Cervix/sulci/rectum were intact. A second degree perineal laceration was repaired in the normal standard fashion. Hemostasis obtained with dilute pitocin and fundal massage. Apgars were 8/10. Mother and baby doing well at the end of the delivery. [facility] [place] Vaginal Delivery Charge Delivery Type Details: and 2nd Degree LAC
--- NOTE | 2021-01-26 07:37 | Anesthesia Procedure Note ---
Date of Service January 26, 2021 Anesthesia Post Epidural Note Vital Signs Vital Signs: Temp Pulse Resp BP Pulse Ox 37.8 C H 118 H 20 118/59 L 96 01/26/21 05:35 01/26/21 07:21 01/26/21 07:05 01/26/21 07:21 01/26/21 05:40 Pain Intensity Abdomen: Pain Intensity: 0 Notes Mental Status: alert / awake / arousable and participated in evaluation Nausea / Vomiting: adequately controlled Pain: adequately controlled Airway Patency, RR, SpO2: stable & adequate BP & HR: stable & adequate Hydration State: stable & adequate Neuraxial Anesthesia: was administered and sensory block is resolving Anesthetic Complications: no major complications apparent and Pt Satisfied with anesthetic care Epidural: Removed without complications and With tip intact Notes: Epidural site clean, dry and intact. No signs of edema, erythema or bruising at insertion site. Pt instructed to request anesthesia if she has residual lower extremity numbness or if she develops lower extremity pain or weakness, back pain or headache.
[2021-01-26] MEDS: DOCUSATE SODIUM 100 MG CAP PO SCH ×2 (08:12→21:26)
[2021-01-26] MEDS: IBUPROFEN 600 MG TAB PO PRN ×2 (08:12→15:25)
[2021-01-26] MEDS: PRENATAL VITAMIN 1 TAB PO SCH (08:12)
--- NOTE | 2021-01-27 05:17 | Obstetrical Progress Note ---
Date of Service January 27, 2021 Assessment & Plan (1) Supervision of normal intrauterine in primigravida: PPD#1 doing well. Not sure yet if she'd like DC today. Reviewed DC instructions, followup in 6w in office. Subjective Ambulation: ambulating normally Voiding: no voiding problems Diet Tolerance:: regular diet Lochia:: Moderate Review of Systems All systems reviewed & are unremarkable except as noted in HPI & below Physical Exam Constitutional WD/WN, vitals as above no acute distress Respiratory normal respiratory effort Cardiovascular Rate/Rhythm: regular rate and regular rhythm Gastrointestinal (Abdomen) Inspection/Auscultation: abdomen normal to inspection; abdomen not distended Percussion/Palpation: abdomen soft Genitourinary OB Exam Abdomen: + fundal height Fundus: + firm; not tender Results & Data ([facility]) Vital Signs (Past 12 Hours) Vital Signs Temp Pulse Resp BP Pulse Ox 01/27/21 00:50 37.3 C 89 16 104/71 01/26/21 20:10 37.2 C 97 H 18 106/69 97
[2021-01-27 06:28] LABS: Hematocrit (blood only) 25.5 % (37-47); Hemoglobin 8.3 g/dL (12.0-16.0)
[2021-01-27] MEDS: IBUPROFEN 600 MG TAB PO PRN ×3 (07:44→21:31)
[2021-01-27] MEDS: DOCUSATE SODIUM 100 MG CAP PO SCH ×2 (07:45→21:30)
[2021-01-27] MEDS: PRENATAL VITAMIN 1 TAB PO SCH (07:46)
[2021-01-27] MEDS ORDERED: bisacodyL 5 MG TABEC PO SCH (20:00)
[2021-01-28] MEDS ORDERED: bisacodyL 10 MG SUPP PR PRN (05:41)
--- NOTE | 2021-01-28 06:56 | Obstetrical Progress Note ---
Date of Service <Floresita Villarreal MD - Last Filed: 01/28/21 06:58> January 28, 2021 Assessment & Plan <Floresita Villarreal MD - Last Filed: 01/28/21 06:58> (1) Encounter for care and examination after delivery: PPD 2: stable, routine management * pt voiding and ambulating w/o difficulty * pain well controlled on analgesia * tolerating regular diet * anticipate d/c today * 6 week OB oupt f/u <Tequila Aguilar DO - Last Filed: 01/28/21 07:03> (1) Encounter for care and examination after delivery: Subjective <Floresita Villarreal MD - Last Filed: 01/28/21 06:58> Vida is a 30 y/o female who is now PPD 2 following spontaneous vaginal delivery at 41 weeks. Reports feeling well overall this morning. + abdominal cramping & 0/10 pain well managed on analgesics. Voiding +. Tolerating meals well and able to ambulate some. + passing gas and + bowel movements. Some lochia with some improvement this morning. . Review of Systems Denies fever, chills, sweats Denies shortness of breath, difficulty breathing, chest pain, palpitations, chest pressure. Denies breast pain. Denies dysuria. Denies headache or changes in vision Physical Exam <Floresita Villarreal MD - Last Filed: 01/28/21 06:58> General: Alert, oriented. No acute distress. Cardiac: Regular rate and rhythm, no murmurs/rubs/gallops. Respiratory: Clear to auscultation bilaterally a/p, no wheezes/rales/rhonchi. No increased work of breathing. Symmetrical chest rise. No respiratory distress. Abdomen: Soft, nontender, nondistended. Bowel sounds present. Uterus: Uterine fundus firm, palpable 2 cm below umbilicus. Lower Extremities: No lower extremity edema or swelling. No deep calf pain. Ginny's negative bilaterally.. Results & Data ([facility]) <Floresita Villarreal MD - Last Filed: 01/28/21 06:58> Vital Signs (Past 12 Hours) Vital Signs Temp Pulse Resp BP 01/28/21 00:35 36.8 C 84 18 117/80 01/27/21 20:00 37 C 99 H 18 100/65 <Tequila Aguilar DO - Last Filed: 01/28/21 07:03> Co-Signing Physician Notes Resident Physician Supervision Note: I interviewed and examined the patient. Discussed with Dr. Villarreal and agree with findings and plan as documented in the note. Any exceptions or clarifications are listed here: PPD#2 doing well. DC home. Instructions reviewed. Documented By: Tequila Aguilar DO Resident Activity Tracking <Floresita Villarreal MD - Last Filed: 01/28/21 06:58> Resident Involvement: Resident Care Provided Care Provided: OB Delivery
[2021-01-28] MEDS: DOCUSATE SODIUM 100 MG CAP PO SCH (09:08)
[2021-01-28] MEDS: PRENATAL VITAMIN 1 TAB PO SCH (09:09)
[2021-01-28] MEDS: IBUPROFEN 600 MG TAB PO PRN (10:13)
== END 2021-01-28 12:55 | disposition home or self-care (01) | DRG 807 ==
LOC: 4S1 07:42 → 4S2 01-26 09:15

== ENCOUNTER 2024-01-05 07:48 | Inpatient (IN) ==
[2024-01-05] MEDS ORDERED: OXYTOCIN 30 UNITS/NSS 30 UNITS/500 ML BAG IV PRN ×2 (07:56→21:59)
[2024-01-05] MEDS ORDERED: LIDOCAINE 1% LOCAL 20 ML VIAL INFIL PRN (07:56)
[2024-01-05 08:39] LABS: Hematocrit (blood only) 32.9 % (37.0-47.0); Hemoglobin 10.8 g/dl (12.0-16.0); Mean Corpuscular Hemoglobin 26.9 pg (25.0-34.0); Mean Corpuscular Hgb Conc 32.8 g/dL (32.0-36.0); Mean Platelet Volume 11.5 fL (9.4-12.4); Platelet Count 193 K/uL (130-400); RDW Coefficient of Variation 14.4 % (11.5-14.5); RDW Standard Deviation 42.5 fL (36.4-46.3); Red Blood Count 4.01 M/uL (4.20-5.40); White Blood Count 11.01 K/ul (4.8-10.8)
[2024-01-05] MEDS: LACTATED RINGER'S 1,000 ML IV PRN (08:56)
[2024-01-05] MEDS: ceFAZolin 2000MG 2,000 MG/15 ML SYR IV STA (08:58)
--- NOTE | 2024-01-05 09:00 | History & Physical Report ---
Date of Service January 05, 2024 Assessment & Plan (1) Encounter for induction of labor: Plan: 33 yrs at 40 4/7 weeks POG here for IOL. FHT: Category 1 Plan: IOL with Pitocin as per protocol. (2) Gestational diabetes mellitus (GDM) affecting , antepartum: Plan: Plan: to test RBS during delivery (3) GBS bacteriuria: Plan: Ancef started. (4) Rh negative status during : Plan: - Received Rhogam twice during ANC. Given 09/04/23 for bleeding (2nd dose) - ML *Rhogam given 12/07/23 Admission and Anticipated Discharge Date Admission Date: January 05, 2024 History of Present Illness Primary Care Provider: Vikas Tobin MD Patient is a 33 yo female currently at 40 4/7 WGA as determined by LMP who is here for IOL. Her was complicated by GDm and Rh -ve non- isoimmunized status, GBS - +ve No contractions; movement present;no fluid loss External FHT and external uterine monitors used; category 1 tracing; normal FHT variability Had regular appointments with OB. Labs: Blood type: O -ve Antibody screen: -ve Hgb: 10.8 GBS: +ve Plan: IOL with Pitocin as per protocol Needs PCN during labor Allergies Allergy/AdvReac Type Severity Reaction Status Date / Time amoxicillin [From Augmentin] Allergy Mild Rash Verified 01/04/24 13:27 clarithromycin [From Biaxin] Allergy Mild Rash Verified 01/04/24 13:27 clavulanic acid Allergy Mild Rash Verified 01/04/24 13:27 [From Augmentin] sulfamethoxazole Allergy Mild Rash Verified 01/04/24 13:27 [From Bactrim] trimethoprim [From Bactrim] Allergy Mild Rash Verified 01/04/24 13:27 Home Medications Medication Instructions Recorded Confirmed Type cetirizine 10 mg tablet 10 mg PO QAM 04/23/19 01/05/24 History acetone (urine) test (Ketone Urine #50 ea 08/04/23 01/04/24 Rx Test strips) blood sugar diagnostic (OneTouch #150 ea 08/04/23 01/04/24 Rx Verio test strips) lancets 33 gauge (OneTouch Delica #150 ea 08/04/23 01/04/24 Rx Plus Lancet) ferrous sulfate 325 mg (65 mg 325 mg PO DAILY 01/05/24 01/05/24 History iron) tablet (iron) vits no.124-ferrous fum 1 tab PO DAILY 01/05/24 01/05/24 History 27 mg iron-folic acid 800 mcg tablet ( Vitamin) Patient History Medical History (Updated 01/05/24 @ 10:14 by Karin Nichols MD) Varicella vaccination Surgical History H/O ovarian cystectomy left, dermoid Hx of wisdom tooth extraction Family History (Updated 01/05/24 @ 07:58 by Shanon Mazariegos RN) Grandmother (Paternal) Breast cancer Father Dyslipidemia Grandfather (Maternal) Bladder cancer Grandfather (Paternal) Bladder cancer Grandmother (Maternal) Breast cancer Denies family history of Ovarian cancer Colorectal cancer Social History (Updated 01/05/24 @ 08:00 by Shanon Mazariegos RN) Smoking Status: Never smoker Second Hand Exposure: No; Do You Dip or Chew Tobacco: No; Hx Alcohol Use: No Hx Substance Use: No Preferred Language: [place] Communication Ability: Effective Visual Impairment: Limited Hearing Ability: Normal Ball Assembler Required: No Beliefs That Will Affect Care: None marital status: marital status details: Fredrick Rios (33) [phone] Current Living Situation: Spouse and Family Current Living Situation Comment: lives with spouse, son, 1 dog. current occupational status: employed current occupation: Meterologist. Other Information That Helps Us Care for You: No Feels Safe at Home: Yes Safety Concerns: Feels Safe At This Time Childhood Exposure to Second-Hand Smoke: No Diet: regular Gender Identity: Female Assistive Devices: Contacts and Glasses Review of Systems Denies fever, chills, sweats. Denies SOB, difficulty breathing, chest pain, palpitations, and chest pressure. Denies breast pain. Denies dysuria. Denies headache or changes in vision. Physical Exam Physical Exam: General: Alert and oriented. No acute distress CV: Regular rate and rhythm. No murmurs. Respiratory: CTA bilaterally. No rhonchi, wheezes, or crackles. No increased work of breathing. Abdomen: Gravid; Soft, nontender upon palpation Pelvic: Dilated [_] cm; Effacement [_]; Station [_] per [_] Lower extremities: No LE edema. No deep calf pain. Ginny's negative bilaterally. Results & Data Vital Signs (Past 12 Hours) Vital Signs Temp Pulse Resp BP 01/05/24 07:55 37.2 C 106 H 20 126/73 Supervising Physician Co-Signing Physician Notes Resident Physician Supervision Note: I interviewed and examined the patient. Discussed with Dr. Nichols and agree with findings and plan as documented in the note. Any exceptions or clarifications are listed here: 33 yo at 40 4/7 wga presents for IOL. +FM; denies regular ctx, LOF, VB. PNI: A1GDM, GBS+ urine, Rh neg. SVE 2/50/-2, EFW 8-9lbs. 35cc pompa bulb placed after informed consent obtained, tolerated well. Will start pit, epidural prn. BG during labor Documented By: Michelle Perez MD
[2024-01-05] MEDS: OXYTOCIN 30 UNITS/NSS 30 UNITS/500 ML BAG IV PRN (10:53)
[2024-01-05] MEDS ORDERED: BUPIVACAINE 0.25% PF 30 ML VIAL EPI PRN (12:33)
[2024-01-05] MEDS ORDERED: fentaNYL citrate PF 100 MCG/2 ML VIAL EPI PRN (12:33)
[2024-01-05] MEDS ORDERED: diphenhydrAMINE 50 MG/ML VIAL IV PRN (12:33)
[2024-01-05] MEDS ORDERED: fentANYL 2 MCG/ML BUPIVacaine 0.125%-NSS 100ML BAG EPI PRN (12:33)
[2024-01-05] MEDS ORDERED: NALOXONE HCL 0.4 MG/1 ML VIAL/CARP IV PRN (12:33)
[2024-01-05] MEDS ORDERED: LIDOCAINE 2% MPF LOCAL 5 ML VIAL EPI PRN (12:33)
[2024-01-05] MEDS ORDERED: NALOXONE HCL 1 MG in SODIUM CHLORIDE 0.9% 1,000 ML IV PRN (12:33)
[2024-01-05] MEDS ORDERED: ePHEDrine sulfate 50 MG/ML AMP IV PRN (12:33)
[2024-01-05] MEDS ORDERED: ROPIVACAINE 0.5% PF 5 MG/ML 20 ML VIAL EPI PRN (12:33)
[2024-01-05] MEDS ORDERED: NALBUPHINE HCL INJ 10 MG/ML AMP IV PRN (12:33)
[2024-01-05] MEDS ORDERED: SODIUM CHLORIDE 0.9% PF INJ 10 ML VIAL EPI PRN (12:33)
--- NOTE | 2024-01-05 12:33 | Anesthesiology Consultation ---
Date of Service January 05, 2024 Assessment & Plan Chart Review Chart Review: Acceptable Risk for Labor Epidural Consults Requested none History Height/Weight Height: 5 ft 9 in Weight: 111.13 kg Allergies Allergy/AdvReac Type Severity Reaction Status Date / Time amoxicillin [From Augmentin] Allergy Mild Rash Verified 01/04/24 13:27 clarithromycin [From Biaxin] Allergy Mild Rash Verified 01/04/24 13:27 clavulanic acid Allergy Mild Rash Verified 01/04/24 13:27 [From Augmentin] sulfamethoxazole Allergy Mild Rash Verified 01/04/24 13:27 [From Bactrim] trimethoprim [From Bactrim] Allergy Mild Rash Verified 01/04/24 13:27 Medications Home Medications Medication Instructions Recorded Confirmed Last Taken cetirizine 10 mg tablet 10 mg PO QAM 04/23/19 01/05/24 01/04/24 21:00 acetone (urine) test (Ketone Urine #50 ea 08/04/23 01/04/24 Unknown Test strips) blood sugar diagnostic (ShiftgigTouch #150 ea 08/04/23 01/04/24 Unknown Verio test strips) lancets 33 gauge (ShiftgigTouch Delica #150 ea 08/04/23 01/04/24 Unknown Plus Lancet) ferrous sulfate 325 mg (65 mg 325 mg PO DAILY 01/05/24 01/05/24 01/04/24 08:00 iron) tablet (iron) vits no.124-ferrous fum 1 tab PO DAILY 01/05/24 01/05/24 01/04/24 11:00 27 mg iron-folic acid 800 mcg tablet ( Vitamin) Active Medications Generic Name Dose Route Start Last Admin Trade Name Freq PRN Reason Stop Dose Admin Oxytocin 30 units in 500 mls @ 5 mls/hr 01/05/24 07:56 01/05/24 12:03 Pitocin 30 Units/Nss IV 01/07/24 07:55 0.3 units/hr .Q24H PRN 5 mls/hr Labor Induction/Augmentation Titration Protocol 0.3 UNITS/HR Lactated Ringer's 1,000 mls @ 125 mls/hr 01/05/24 07:56 01/05/24 12:08 Lr IV 01/07/24 07:55 999 mls/hr .Q8H PRN Infusion L&D Protocol Protocol Past Medical History Medical History (Updated 01/05/24 @ 10:14 by Karin Nichols MD) Varicella vaccination Past Family History Family History (Updated 01/05/24 @ 07:58 by Shanon Mazariegos, RN) Grandmother (Paternal) Breast cancer Father Dyslipidemia Grandfather (Maternal) Bladder cancer Grandfather (Paternal) Bladder cancer Grandmother (Maternal) Breast cancer Denies family history of Ovarian cancer Colorectal cancer Past Surgical History Surgical History H/O ovarian cystectomy left, dermoid Hx of wisdom tooth extraction Social History Smoking Status: Never smoker Do You Dip or Chew Tobacco: No Hx Alcohol Use: No Alcohol type: wine alcohol intake frequency: a few times a week Hx Substance Use: No substance use type: does not use Physical Exam Vital Signs Last Vital Signs Temp 37.3 C 01/05/24 12:03 Pulse 65 01/05/24 12:11 Resp 20 01/05/24 12:03 BP 93/46 L 01/05/24 12:11 Testing Laboratory Results 01/05/24 08:10 Blood Type O Negative 01/05/24 08:10 Antibody Screen NEGATIVE 01/05/24 08:10 01/05/24 01/05/24 11:47 10:40 POC Glucose 98 91
[2024-01-05] MEDS: LIDOCAINE 2%/EPINEPHRINE 1:200,000 20 ML PF ONE (12:55)
[2024-01-05] MEDS: fentANYL 2 MCG/ML BUPIVacaine 0.125%-NSS 100ML BAG ONE (13:02)
[2024-01-05] MEDS: SODIUM CHLORIDE 0.9% PF INJ 10 ML VIAL ONE (13:11)
[2024-01-05] MEDS: fentaNYL citrate PF 100 MCG/2 ML VIAL ONE (13:11)
[2024-01-05] MEDS: BUPIVACAINE 0.25% PF 30 ML VIAL ONE (13:11)
--- NOTE | 2024-01-05 14:46 | Labor Progress Brief Note ---
Date of Service January 05, 2024 Subjective comfortable w/ epidural, bulb out Assessment & Plan (1) Encounter for induction of labor: Plan: 33 yo at 40 4/7 wga presents for iol for a1gdm vss fetus cat 1 labor - s/p bulb and now arom, pit at 11 - continue induction a1gdm - bg awnl gbs neg epidural in place Admission and Anticipated Discharge Date Admission Date: January 05, 2024 Physical Exam Genitourinary: Manual OB Exam: + cervical dilation 4 cm, + cervical effacement 50%, + station -2 and + amniotic fluid (arom clear) OB Exam Monitor Tracing: + external FHT monitor used, + external uterine monitor used (q3) and + category I (135/mod/+accel/-decel) Results & Data Vital Signs (Past 12 Hours) Vital Signs Temp Pulse Resp BP Pulse Ox 01/05/24 14:41 100 01/05/24 14:41 79 01/05/24 14:40 88 01/05/24 14:40 109/57 L 01/05/24 14:36 100 01/05/24 14:36 89 01/05/24 14:31 98 01/05/24 14:31 84 01/05/24 14:26 97 01/05/24 14:26 76 01/05/24 14:25 86 01/05/24 14:25 109/66 01/05/24 14:21 98 01/05/24 14:21 79 01/05/24 14:16 99 01/05/24 14:16 88 01/05/24 14:11 98.2 F 20 97 01/05/24 14:11 67 01/05/24 14:09 73 01/05/24 14:09 101/50 L 01/05/24 14:06 96 01/05/24 14:06 73 01/05/24 14:01 97 01/05/24 14:01 71 01/05/24 13:56 98 01/05/24 13:56 70 01/05/24 13:54 74 01/05/24 13:54 105/58 L 01/05/24 13:51 98 01/05/24 13:51 83 01/05/24 13:46 99 01/05/24 13:46 78 01/05/24 13:41 99 01/05/24 13:41 81 01/05/24 13:39 74 01/05/24 13:39 107/52 L 01/05/24 13:36 99 01/05/24 13:36 69 01/05/24 13:31 99 01/05/24 13:31 75 01/05/24 13:26 100 01/05/24 13:26 73 01/05/24 13:25 71 01/05/24 13:25 95/50 L 01/05/24 13:21 99 01/05/24 13:21 69 01/05/24 13:16 99 01/05/24 13:16 73 01/05/24 13:11 100 01/05/24 13:11 71 01/05/24 13:09 74 01/05/24 13:09 103/53 L 01/05/24 13:07 68 01/05/24 13:07 100/50 L 01/05/24 13:06 100 01/05/24 13:06 70 01/05/24 13:05 68 01/05/24 13:05 104/53 L 01/05/24 13:03 76 01/05/24 13:03 104/51 L 01/05/24 13:01 100 01/05/24 13:01 76 01/05/24 13:01 102/58 L 01/05/24 12:58 75 01/05/24 12:58 117/59 L 01/05/24 12:55 100 01/05/24 12:55 76 01/05/24 12:50 100 01/05/24 12:50 74 01/05/24 12:45 100 01/05/24 12:45 74 01/05/24 12:33 75 01/05/24 12:33 111/64 01/05/24 12:11 65 01/05/24 12:11 93/46 L 01/05/24 12:03 99.1 F 20 01/05/24 11:56 71 01/05/24 11:56 106/54 L 01/05/24 11:42 80 01/05/24 11:42 122/51 L 01/05/24 11:25 81 01/05/24 11:25 113/60 01/05/24 11:10 77 01/05/24 11:10 20 110/58 L 01/05/24 07:55 99.0 F 106 H 20 126/73 Coding Level of Care Code None Diagnoses Encounter for induction of labor Z34.90
[2024-01-05] MEDS: ePHEDrine sulfate 50 MG/ML AMP ONE (17:06)
[2024-01-05] MEDS: ceFAZolin 1000MG 1,000 MG/7.5 ML SYR IV PRN (17:21)
--- NOTE | 2024-01-05 18:32 | Delivery Summary ---
Vaginal Delivery Summary Date of Service January 05, 2024 Vaginal Delivery Summary and 2nd Degree LAC PREOPERATIVE DIAGNOSIS: 1. Single intrauterine at 40 4/7 wga 2. A1GDM 3. GBS+ POSTOPERATIVE DIAGNOSIS: 1. Single intrauterine at 40 4/7 wga 2. A1GDM 3. GBS+ 4. Delivered PROCEDURE: 1. Normal spontaneous vaginal delivery. SURGEON: Michelle Perez MD ANESTHESIA: Epidural. QUANTITATIVE BLOOD LOSS: 193mL FLUIDS: Continuous LR. URINE OUTPUT: 300cc by straight cath after delivery COMPLICATIONS: None. CONDITION: Stable. INDICATIONS: 33 yo at 40 4/7 wga presented for induction of labor for GDM. She was started on ancef for GBS+ ppx. 35cc pompa was placed and pitocin started. She received an epidural for pain control and pompa bulb expulsed. She underwent arom and progressed to complete and desired to push. FINDINGS: A viable male , weight pending with Apgars of 8 and 9 at 1 and 5 minutes respectively. SPECIMEN: Cord blood OPERATIVE REPORT: The patient progressed to 10 cm, 100% effaced and +2 station, pushed over intact perineum with anesthesia to deliver a viable male , weight and Apgars as above. Head of delivered in ARELI position. Loose nuchal cord was delivered through. Body and shoulders were delivered without difficulty. was delivered to maternal abdomen and nursing staff. Delayed cord clamping was performed for 60 seconds. Cord was clamped and cut. Cord blood was obtained. Placenta delivered spontaneously intact with 3-vessel cord. IV oxytocin and fundal massage were given for excellent hemostasis. Vagina, cervix, perineum, and placenta were inspected. A second degree laceration was repaired with 3-0 vicryl in the usual fashion. There was excellent hemostasis. Sponge and needle counts correct x2. No sponges were left behind. Mother and stable in immediate period. [facility] Vaginal Delivery Charge Vaginal Delivery Codes: 16502 global code for the antepartum, delivery, and post- Delivery Type Details: and 2nd Degree LAC
--- NOTE | 2024-01-05 19:18 | Anesthesia Procedure Note ---
Date of Service January 05, 2024 Anesthesia Post Epidural Note Vital Signs Vital Signs: Temp Pulse Resp BP Pulse Ox 37 C 79 20 118/57 L 100 01/05/24 17:57 01/05/24 19:04 01/05/24 18:45 01/05/24 19:04 01/05/24 18:26 Pain Intensity Abdomen: Pain Intensity: 3 Notes Mental Status: alert / awake / arousable and participated in evaluation Nausea / Vomiting: adequately controlled Pain: adequately controlled Airway Patency, RR, SpO2: stable & adequate BP & HR: stable & adequate Hydration State: stable & adequate Neuraxial Anesthesia: was administered and sensory block resolved Anesthetic Complications: no major complications apparent and Pt Satisfied with anesthetic care Epidural: Removed without complications and With tip intact
[2024-01-05] MEDS ORDERED: bisacodyL 10 MG SUPP PR PRN (21:59)
[2024-01-05] MEDS ORDERED: HYDROCORTISONE ACETATE 25 MG SUPP PR PRN (21:59)
[2024-01-06] MEDS: ACETAMINOPHEN 325 MG TAB PO PRN
--- NOTE | 2024-01-06 07:05 | Obstetrical Progress Note ---
Date of Service January 06, 2024 Assessment & Plan (1) Vaginal delivery: Plan: 1st PP Day following with Laceration in 34 years P at 40+4 week POG. Plan: Both mom and baby doing well. Vitals: Stable No breast issues. Discharge today as per protocol tomorrow. She will complete 24 hours tonight. Admission and Anticipated Discharge Date Admission Date: January 05, 2024 Supervising Physician Co-Signing Physician Notes Resident Physician Supervision Note: I interviewed and examined the patient. Discussed with Dr. Nichols and agree with findings and plan as documented in the note. Any exceptions or clarifications are listed here: PP1 s/p , doing well. Continue routine care Documented By: Michelle Perez MD Subjective 1st PP Day following with Laceration in 34 years P at 40+4 week POG. No active complains Both mom and baby doing well. Pain: Mild, intermittent Lochia: Moderate Diet: Regular Ob diet Gas: Passed Peeing: Normal, no bladder distension Ambulation: Normally Review of Systems Review of Systems: No SOB, chest pain, leg pain No dizziness, headache, palpitation No Blurring of vision , fever Physical Exam Physical Exam: General: Alert and oriented. No acute distress. CVS: S1 S2+ No murmurs, regular rhythm. Respiratory: CTA bilaterally. No rhonchi, wheezes, or crackles. No increased work of breathing. Abdomen: Bowel sound +. Soft, nontender Uterus: Fundus firm and palpable suprapubic, well contracted. Lower extremities: No LE edema. No deep calf pain. Results & Data Vital Signs (Past 12 Hours) Vital Signs Temp Pulse Resp BP BP Pulse Ox O2 Del Method 01/06/24 04:00 37.0 C 16 109/72 96 Room Air 01/06/24 00:12 37.1 C 16 127/82 97 Room Air 01/05/24 21:00 37.1 C 16 106/69 95 Room Air 01/05/24 21:00 Room Air 01/05/24 20:34 91 H 01/05/24 20:34 112/57 L 01/05/24 20:30 18 01/05/24 20:19 81 01/05/24 20:19 112/53 L 01/05/24 20:05 85 09/24/24 20:05 101/53 L 01/05/24 20:00 18 01/05/24 19:49 83 01/05/24 19:49 111/58 L 01/05/24 19:34 78 01/05/24 19:34 112/63 01/05/24 19:30 18 01/05/24 19:19 81 01/05/24 19:19 113/61 01/05/24 19:15 18 01/05/24 19:04 79 01/05/24 19:04 118/57 L Resident Activity Tracking Resident Involvement: Resident Care Provided Care Provided: OB Delivery
[2024-01-06] MEDS: PRENATAL VITAMIN 1 TAB PO SCH (08:01)
[2024-01-06] MEDS: IBUPROFEN 600 MG TAB PO PRN (08:02)
[2024-01-06] MEDS: DOCUSATE SODIUM 100 MG CAP PO SCH (08:02)
[2024-01-06] MEDS: FERROUS SULFATE 325 MG TAB PO SCH (08:02)
[2024-01-06 18:57] VITALS: RESP 18
[2024-01-06] MEDS: bisacodyL 5 MG TABEC PO SCH (20:31)
[2024-01-06] MEDS: LIDOCAINE 2%/EPINEPHRINE 1:200,000 20 ML PF EPI STA (23:13)
[2024-01-06] MEDS: fentaNYL citrate PF 100 MCG/2 ML VIAL EPI STA (23:13)
[2024-01-06] MEDS: SODIUM CHLORIDE 0.9% PF INJ 10 ML VIAL EPI STA (23:13)
[2024-01-06] MEDS: BUPIVACAINE 0.25% PF 30 ML VIAL EPI STA (23:13)
[2024-01-06] MEDS: DIPHTHER/TETAN/PERTUS Vaccine (Tdap, Adol/Adult) 0.5mL IM ONE (23:14)
[2024-01-07] MEDS: BENZOCAINE 20% SPRY 85 APPLN/85 GM CAN EXT PRN (04:16)
--- NOTE | 2024-01-07 07:53 | Obstetrical Progress Note ---
Date of Service January 07, 2024 Assessment & Plan (1) Vaginal delivery: Plan: 2nd PP Day following with Laceration in 34 years P at 40+4 week POG. Plan: Both mom and baby doing well. Vitals: Stable No breast issues. Discharge today. Admission and Anticipated Discharge Date Admission Date: January 05, 2024 Supervising Physician Co-Signing Physician Notes Patient seen with resident and agree with the above findings and plan. Stable for discharge. Subjective 2nd PP Day following with Laceration in 34 years P at 40+4 week POG. No active complains Both mom and baby doing well. Pain: Mild, intermittent Lochia: Mild Diet: Regular Ob diet Gas: Passed Peeing: Normal, no bladder distension Ambulation: Normally Review of Systems Review of Systems: No SOB, chest pain, leg pain No dizziness, headache, palpitation No Blurring of vision , fever Physical Exam Physical Exam: General: Alert and oriented. No acute distress. CVS: S1 S2+ No murmurs, regular rhythm. Respiratory: CTA bilaterally. No rhonchi, wheezes, or crackles. No increased work of breathing. Abdomen: Bowel sound +. Soft, nontender Uterus: Fundus firm and palpable suprapubic, well contracted. Lower extremities: No LE edema. No deep calf pain. Results & Data Vital Signs (Past 12 Hours) Vital Signs Temp Pulse Resp BP Pulse Ox O2 Del Method 01/06/24 23:15 37.0 C 61 18 120/79 97 Room Air Resident Activity Tracking Resident Involvement: Resident Care Provided Care Provided: OB Delivery
[2024-01-07 10:11] VITALS: BP 123/78; PULSE 78; TEMP 98.4; O2SAT 98
== END 2024-01-07 12:10 | disposition home or self-care (01) | DRG 807 ==
LOC: 4S1 07:48 → 4E2 21:00